=== PATIENT | male | born 1995 | race Caucasian/White ===

== ENCOUNTER → 2017-07-16 | Emergency (ER) | payer OTHER ==
[~2017-07-16] VITALS: Ht 180.3 cm; Wt 65.8 kg
[~2017-07-16] MED LIST: ANUSOL-HC30 GM RC; COLACE100 MG PO; DOXYCYCLINE HY100 MG PO; NORCO 5-325 TA1 EACH PO; ZOFRAN ODT4 MG PO
== END ==
LOC: ED 18:52
DX: K52.9 Noninfective gastroenteritis and colitis, unspecified (principal)
CPT/HCPCS: 80053; 81001; 85025; 96361; 96374; 99283; J2405; J7030